=== PATIENT | male | born 1970 | race Caucasian/White ===

== ENCOUNTER 2017-07-22 19:31 | Inpatient (IN) | payer BC ==
[~2017-07-22] VITALS: Ht 182.9 cm; Wt 114.3 kg
[2017-07-22] MEDS ORDERED: fentaNYL PF VIAL 100 MCG/2 ML VIAL IV PRN (20:15)
[2017-07-22] MEDS ORDERED: NITROGLYCERIN SUBLINGUAL 0.4 MG BOTTLE OF 25. SL PRN (20:15)
--- NOTE | 2017-07-22 20:20 | PHYS DOC ---
Past Medical History Past Medical History: Diabetes-Type II, Hypertension Past Surgical History: No Surgical History Alcohol Use: None Drug Use: None Adult General Chief Complaint Chief Complaint: CHEST PAIN HPI HPI Patient is a 47 year old male who presents with complaint of chest pain. The patient states he started getting chest pains yesterday and states that he has been having them intermittently throughout the day today. Patient states that he has been having shortness of breath which also started yesterday but states that this has been constant. The patient has history of hypertension, type 2 diabetes mellitus, and family history of coronary artery disease. The patient states that he has not had associated nausea or diaphoresis with his symptoms. Patient denies fevers. The patient states that he has been under stress over the past few days and states that he started getting pains after he was told by his yesterday that she would be leaving him. Patient rates his pain currently as 5 out of 10. Patient states that the pain feels like pressure. Patient denies radiation of pain. Patient has not taken any medications for symptoms. Review of Systems Review of Systems Constitutional: Denies fever or chills [] Eyes: Denies change in visual acuity, redness, or eye pain [] HENT: Denies nasal congestion or sore throat [] Respiratory: Shortness of breath, denies cough[] Cardiovascular: Chest pain, denies edema[] GI: Denies abdominal pain, nausea, vomiting, bloody stools or diarrhea [] : Denies dysuria or hematuria [] Musculoskeletal: Denies back pain or joint pain [] Integument: Denies rash or skin lesions [] Neurologic: Denies headache, focal weakness or sensory changes [] Current Medications Current Medications Current Medications Medications (Trade) Dose Ordered Sig/[facility] Start Time Stop Time Status Last Admin Dose Admin Aspirin (Children'S Aspirin) 324 mg 1X ONCE 07/22/17 20:30 07/22/17 20:31 DC 07/22/17 20:39 324 MG Fentanyl Citrate (Fentanyl 2ml Vial) 50 mcg PRN Q15MIN PRN 07/22/17 20:15 07/23/17 20:14 Nitroglycerin (Nitrostat) 0.4 mg PRN Q5MIN PRN 07/22/17 20:15 07/23/17 20:14 Ondansetron HCl (Zofran) 4 mg 1X ONCE 07/22/17 20:30 07/22/17 20:31 DC Sodium Chloride 1,000 ml @ 1,000 mls/hr Q1H 07/22/17 20:30 07/22/17 21:29 07/22/17 20:39 1,000 MLS/HR Allergies Allergies Allergies Coded Allergies Type Severity Reaction Last Updated Verified metformin Allergy Severe 07/22/17 Yes Physical Exam Physical Exam Constitutional: Alert, afebrile, appears in mild to moderate discomfort. [] HENT: Normocephalic, atraumatic, bilateral external ears normal, oropharynx moist, no oral exudates, nose normal. [] Eyes: PERRLA, EOMI, conjunctiva normal, no discharge. [] Neck: Normal range of motion, no tenderness, supple, no stridor. [] Cardiovascular: Tachycardia, regular rhythm, no murmur [] Lungs & Thorax: Bilateral breath sounds clear to auscultation [] Abdomen: Bowel sounds normal, soft, no tenderness, no masses, no pulsatile masses. [] Skin: Warm, dry, no erythema, no rash. [] Back: No tenderness, no CVA tenderness. [] Extremities: No tenderness, no cyanosis, no clubbing, ROM intact, no edema. [] Neurologic: Alert and oriented X 3, normal motor function, normal sensory function, no focal deficits noted. [] Current Patient Data Vital Signs Vital Signs Date Time Temp Pulse Resp B/P (MAP) Pulse Ox O2 Delivery O2 Flow Rate FiO2 07/22/17 19:44 98.8 101 20 140/100 (113) 97 Room Air 98.8 Lab Values Laboratory Tests Test 07/22/17 19:40 White Blood Count 9.8 x10^3/uL (4.0-11.0) Red Blood Count 5.89 x10^6/uL (4.30-5.70) H Hemoglobin 17.7 g/dL (13.0-17.5) H Hematocrit 50.5 % (39.0-53.0) Mean Corpuscular Volume 86 fL (79-100) Mean Corpuscular Hemoglobin 30 pg (25-35) Mean Corpuscular Hemoglobin Concent 35 g/dL (31-37) Red Cell Distribution Width 12.8 % (11.5-14.5) Platelet Count 328 x10^3/uL (140-400) Neutrophils (%) (Auto) 63 % (31-73) Lymphocytes (%) (Auto) 28 % (24-48) Monocytes (%) (Auto) 9 % (0-9) Eosinophils (%) (Auto) 0 % (0-3) Basophils (%) (Auto) 1 % (0-3) Neutrophils # (Auto) 6.2 x10^3uL (1.8-7.7) Lymphocytes # (Auto) 2.7 x10^3/uL (1.0-4.8) Monocytes # (Auto) 0.8 x10^3/uL (0.0-1.1) Eosinophils # (Auto) 0.0 x10^3/uL (0.0-0.7) Basophils # (Auto) 0.0 x10^3/uL (0.0-0.2) D-Dimer (Judie) < 0.27 ug/mlFEU Sodium Level 139 mmol/L (136-145) Potassium Level 3.9 mmol/L (3.5-5.1) Chloride Level 98 mmol/L (98-107) Carbon Dioxide Level 28 mmol/L (21-32) Anion Gap 13 (6-14) Blood Urea Nitrogen 16 mg/dL (8-26) Creatinine 1.2 mg/dL (0.7-1.3) Estimated GFR (Cockcroft-Gault) 65.5 BUN/Creatinine Ratio 13 (6-20) Glucose Level 119 mg/dL (70-99) H Calcium Level 10.0 mg/dL (8.5-10.1) Magnesium Level 1.9 mg/dL (1.8-2.4) Total Bilirubin 1.8 mg/dL (0.2-1.0) H Aspartate Amino Transferase (AST) 32 U/L (15-37) Alanine Aminotransferase (ALT) 50 U/L (16-63) Alkaline Phosphatase 84 U/L (46-116) Troponin I Quantitative < 0.017 ng/mL (0.000-0.055) Total Protein 9.0 g/dL (6.4-8.2) H Albumin 5.2 g/dL (3.4-5.0) H Albumin/Globulin Ratio 1.4 (1.0-1.7) Lipase 378 U/L (73-393) Laboratory Tests 07/22/17 19:40 Laboratory Tests 07/22/17 19:40 EKG EKG Interpreted by me: Heart rate 103, sinus tachycardia, normal intervals, normal axis, subtle T-wave inversions in leads 3 and aVF, no acute ST elevations or depressions[] Radiology/Procedures Radiology/Procedures One view AP chest x-ray interpreted by me: No infiltrate, no effusions, normal cardiac silhouette[] Course & Med Decision Making Course & Med Decision Making Pertinent Labs and Imaging studies reviewed. (See chart for details) HEART score is 5, placing patient at moderate risk for adverse cardiac event. Initial troponin was negative. The patient will require hospitalization for rule out of myocardial infarction. I spoke with Dr. Sam who accepted care patient in hospital. A consult was placed to Dr. Adkins to follow patient in hospital. Dragon Disclaimer Dragon Disclaimer This electronic medical record was generated, in whole or in part, using a voice recognition dictation system. Departure Departure Impression: Primary Impression: Chest pain Additional Impressions: Hypertension Type 2 diabetes mellitus Family history of coronary artery disease Disposition: ADMITTED INPATIENT Admitting Physician: Leslie Sam Condition: GUARDED Referrals: JOHN LOPEZ (PCP) Problem Qualifiers Primary Impression: Chest pain Chest pain type: unspecified Qualified Codes: R07.9 - Chest pain, unspecified Additional Impressions: Hypertension Hypertension type: essential hypertension Qualified Codes: I10 - Essential ( primary) hypertension Type 2 diabetes mellitus Diabetes mellitus complication status: with unspecified complications Diabetes mellitus correction insulin use: without correction use Qualified Codes : E11.8 - Type 2 diabetes mellitus with unspecified complications DARYA DALLAS MD Jul 22, 2017 20:19
[2017-07-22 20:21] LABS: BASO % 1 % (0-3); EOS % 0 % (0-3); HEMATOCRIT 50.5 % (39.0-53.0); HEMOGLOBIN 17.7 g/dL (13.0-17.5); LYMPH # 2.7 x10^3/uL (1.0-4.8); LYMPH % 28 % (24-48); MEAN CORPUSCULAR HEMOGLOBIN 30 pg (25-35); MEAN CORPUSCULAR HGB CONC 35 g/dL (31-37); MEAN CORPUSCULAR VOLUME 86 fL (79-100); MONO % 9 % (0-9); NEUT % 63 % (31-73); PLATELET COUNT 328 x10^3/uL (140-400); RED BLOOD COUNT 5.89 x10^6/uL (4.30-5.70); RED CELL DISTRIBUTION WIDTH 12.8 % (11.5-14.5); WHITE BLOOD COUNT 9.8 x10^3/uL (4.0-11.0)
[2017-07-22] MEDS ORDERED: ONDANSETRON PF 4 MG/2 ML VIAL. IV ONE (20:30)
[2017-07-22] MEDS ORDERED: ASPIRIN CHEWABLE 81 MG TABLET. PO ONE (20:30)
[2017-07-22] MEDS ORDERED: IV NORMAL SALINE 1000ML BAG 1,000 ML IV SCH (20:30)
[2017-07-22 20:36] LABS: MAGNESIUM 1.9 mg/dL (1.8-2.4)
[2017-07-22 20:43] LABS: ALBUMIN 5.2 g/dL (3.4-5.0); ALBUMIN/GLOBULIN RATIO 1.4 (1.0-1.7); CREATININE 1.2 mg/dL (0.7-1.3); GFR 65.5; POTASSIUM 3.9 mmol/L (3.5-5.1); TOTAL BILIRUBIN 1.8 mg/dL (0.2-1.0)
[2017-07-22 20:50] LABS: CKMB MASS 6.6 ng/mL (0.0-3.6)
[2017-07-22] MEDS ORDERED: ACETAMINOPHEN 325 MG TABLET. PO PRN (21:00)
[2017-07-22] MEDS ORDERED: ONDANSETRON PF 4 MG/2 ML VIAL. IV PRN (21:00)
[2017-07-22 21:48] LABS: BILIRUBIN,URINE NEGATIVE (NEG); GLUCOSE,URINE NEGATIVE (NEG); NITRITE,URINE NEGATIVE (NEG); PH,URINE 6.5; PROTEIN,URINE 100 mg/dL (NEG-TRACE); UROBILINOGEN,URINE 0.2 mg/dL (0.2 mg/dL)
[2017-07-22 21:55] LABS: BACTERIA,URINE 0 /HPF (0-FEW); RBC,URINE 0 /HPF (0-2)
[2017-07-22 22:02] LABS: BARBITURATES NEG (NEG); BENZODIAZEPINES NEG (NEG); CANNABINOIDS NEG (NEG); COCAINE NEG (NEG); METHADONE NEG (NEG); OPIATES NEG (NEG); PHENCYCLIDINE NEG (NEG)
--- NOTE | 2017-07-22 22:05 | PDOC1 ---
History and Physical Date of Admission Date of Admission DATE: 07/22/17 TIME: 22:03 Source Source: Chart review, Patient History of Present Illness History of Present Illness Mr. Carlos, is a 47 year old male admit from ER with complaint of chest pain. The patient states he started getting chest pains yesterday and reports one distinct episode of pain yesterday and then pain today. Pain is across his chest but does not radiate, and feels tight. WHen pain occurrs he reports he can barely breathe. w/ pressure New dyspnea yesterday emotional day yesterday, as his may be leaving him, and he started smoking again, then had chest pain. no sore throat, no cough, no travel, no sick contacts. Patient was rate 5 out of 10. Past Medical History Cardiovascular: HTN GI: No pertinent hx Heme/Onc: No pertinent hx Hepatobiliary: No pertinent hx Psych: No pertinent hx Rheumatologic: No pertinent hx Endocrine: Diabetes Family History Family History: Coronary Artery Disease (father triple bypass) Social History Smoke: <1 pack per day ALCOHOL: rare Drugs: None Current Problem List Problem List Problems Medical Problems: (1) Chest pain Status: Acute (2) Hypertension Status: Acute (3) Type 2 diabetes mellitus Status: Acute Problems: Current Medications Current Medications Current Medications Aspirin (Children'S Aspirin) 324 mg 1X ONCE PO Last administered on 20:39; Start 07/22/17 at 20:30; Stop 07/22/17 at 20:31; Status DC Nitroglycerin (Nitrostat) 0.4 mg PRN Q5MIN PRN SL CP RATING > 1/10; Start at 20:15; Stop 07/23/17 at 20:14 Fentanyl Citrate (Fentanyl 2ml Vial) 50 mcg PRN Q15MIN PRN IV PAIN GREATER THAN 3/10; Start 07/22/17 at 20:15; Stop 07/23/17 at 20:14 Sodium Chloride 1,000 ml @ 1,000 mls/hr Q1H IV Last administered on 20:39; Start 07/22/17 at 20:30; Stop 07/22/17 at 21:29; Status DC Ondansetron HCl (Zofran) 4 mg 1X ONCE IV ; Start 07/22/17 at 20:30; Stop at 20:31; Status DC Ondansetron HCl (Zofran) 4 mg PRN Q8HRS PRN IV NAUSEA/VOMITING; Start at 21:00; Stop 07/23/17 at 20:59 Sodium Chloride 1,000 ml @ 100 mls/hr Q10H IV ; Start 07/22/17 at 21:00; Stop 07/23/17 at 20:59 Acetaminophen (Tylenol) 650 mg PRN Q4HRS PRN PO FEVER; Start 07/22/17 at 21:00 ; Stop 07/23/17 at 20:59 Allergies Allergies: Coded Allergies: metformin (Verified Allergy, Severe, 07/22/17) ROS General: YES: Malaise, No: Chills, Night Sweats, Fatigue, Appetite, Other PSYCHOLOGICAL ROS: No: Anxiety, Behavioral Disorder, Concentration difficultie , Decreased libido, Depression, Disorientation, Hallucinations, Hostility, Irritablity, Memory difficulties, Mood Swings, Obsessive thoughts, Physical abuse, Sexual abuse, Sleep disturbances, Suicidal ideation, Other Eyes: No Blurry vision, No Decreased vision, No Double vision, No Dry eyes, No Excessive tearing, No Eye Pain, No Itchy Eyes, No Loss of vision, No Photophobia , No Scotomata, No Uses contacts, No Uses glasses, No Other HEENT: YES: Heacaches, No: Visual Changes, Hearing change, Nasal congestion, Nasal discharge, Oral lesions, Sinus pain, Sore Throat, Epistaxis, Sneezing, Snoring, Tinnitus, Vertigo, Vocal changes, Other Respiratory: YES: Shortness of breath, No: Cough, Hemoptysis, Orthopnea, Pleuritic Pain, SOB with excertion, Sputum Changes, Stridor, Tachypnea, Wheezing, Other Cardiovascular: yes Chest Pain, No Palpitations, No Orthopnea, No Paroxysmal Noc. Dyspnea, No Edema, No Lt Headedness, No Other Gastrointestinal: No Nausea, No Vomiting, No Abdominal Pain, No Diarrhea, No Constipation, No Melena, No Hematochezia, No Other Genitourinary: No Dysuria, No Frequency, No Incontinence, No Hematuria, No Retention, No Discharge, No Urgency, No Pain, No Flank Pain, No Other, No , No , No , No , No , No , No Musculoskeletal: No Gait Disturbance, No Joint Pain, No Joint Stiffness, No Joint Swelling, No Muscle Pain, No Muscular Weakness, No Pain In:, No Swelling In:, No Other Neurological: No Behavorial Changes, No Bowel/Bladder ControlChng, No Confusion , No Dizziness, No Gait Disturbance, No Headaches, No Impaired Coord/balance, No Memory Loss, No Numbness/Tingling, No Seizures, No Speech Problems, No Tremors, No Visual Changes, No Weakness, No Other Skin: No Dry Skin, No Eczema, No Hair Changes, No Lumps, No Mole Changes, No Mottling, No Nail Changes, No Pruritus, No Rash, No Skin Lesion Changes, No Other, No Acne Physical Exam General: Alert, Oriented X3, Cooperative, mild distress HEENT: EOMI, Mucous membr. moist/pink Lungs: Normal air movement Heart: S1S2, no gallops, no murmurs Abdomen: Normal bowel sounds Extremities: No edema, Normal pulses Skin: No rashes, No significant lesion Neuro: Normal speech, Normal tone, Sensation intact, Cranial nerves 3-12 NL Psych/Mental Status: Mood NL Vitals Vitals Vital Signs Date Time Temp Pulse Resp B/P (MAP) Pulse Ox O2 Delivery O2 Flow Rate FiO2 07/22/17 21:01 97 141/86 (104) 97 Room Air 07/22/17 20:31 23 07/22/17 19:44 98.8 98.8 Labs Labs Laboratory Tests Test 07/22/17 19:40 07/22/17 21:43 White Blood Count 9.8 x10^3/uL (4.0-11.0) Red Blood Count 5.89 x10^6/uL (4.30-5.70) Hemoglobin 17.7 g/dL (13.0-17.5) Hematocrit 50.5 % (39.0-53.0) Mean Corpuscular Volume 86 fL (79-100) Mean Corpuscular Hemoglobin 30 pg (25-35) Mean Corpuscular Hemoglobin Concent 35 g/dL (31-37) Red Cell Distribution Width 12.8 % (11.5-14.5) Platelet Count 328 x10^3/uL (140-400) Neutrophils (%) (Auto) 63 % (31-73) Lymphocytes (%) (Auto) 28 % (24-48) Monocytes (%) (Auto) 9 % (0-9) Eosinophils (%) (Auto) 0 % (0-3) Basophils (%) (Auto) 1 % (0-3) Neutrophils # (Auto) 6.2 x10^3uL (1.8-7.7) Lymphocytes # (Auto) 2.7 x10^3/uL (1.0-4.8) Monocytes # (Auto) 0.8 x10^3/uL (0.0-1.1) Eosinophils # (Auto) 0.0 x10^3/uL (0.0-0.7) Basophils # (Auto) 0.0 x10^3/uL (0.0-0.2) D-Dimer (Judie) < 0.27 ug/mlFEU Sodium Level 139 mmol/L (136-145) Potassium Level 3.9 mmol/L (3.5-5.1) Chloride Level 98 mmol/L (98-107) Carbon Dioxide Level 28 mmol/L (21-32) Anion Gap 13 (6-14) Blood Urea Nitrogen 16 mg/dL (8-26) Creatinine 1.2 mg/dL (0.7-1.3) Estimated GFR (Cockcroft-Gault) 65.5 BUN/Creatinine Ratio 13 (6-20) Glucose Level 119 mg/dL (70-99) Calcium Level 10.0 mg/dL (8.5-10.1) Magnesium Level 1.9 mg/dL (1.8-2.4) Total Bilirubin 1.8 mg/dL (0.2-1.0) Aspartate Amino Transf (AST/SGOT) 32 U/L (15-37) Alanine Aminotransferase (ALT/SGPT) 50 U/L (16-63) Alkaline Phosphatase 84 U/L (46-116) Creatine Kinase 649 U/L (39-308) Creatine Kinase MB (Mass) 6.6 ng/mL (0.0-3.6) Creatine Kinase MB Relative Index 1.0 % (0-4) Troponin I Quantitative < 0.017 ng/mL (0.000-0.055) QD-Mzn-R-Type Natriuretic Peptide 24 pg/mL (0-124) Total Protein 9.0 g/dL (6.4-8.2) Albumin 5.2 g/dL (3.4-5.0) Albumin/Globulin Ratio 1.4 (1.0-1.7) Lipase 378 U/L (73-393) Urine Collection Type Unknown Urine Color Yellow Urine Clarity Clear Urine pH 6.5 Urine Specific [place] 1.010 Urine Protein 100 mg/dL (NEG-TRACE) Urine Glucose (UA) Negative mg/dL (NEG) Urine Ketones (Stick) Negative mg/dL (NEG) Urine Blood Negative (NEG) Urine Nitrite Negative (NEG) Urine Bilirubin Negative (NEG) Urine Urobilinogen Dipstick 0.2 mg/dL (0.2 mg/dL) Urine Leukocyte Esterase Negative (NEG) Urine RBC 0 /HPF (0-2) Urine WBC 1-4 /HPF (0-4) Urine Transitional Epithelial Cells Few /LPF Urine Bacteria 0 /HPF (0-FEW) Urine Hyaline Casts Many /HPF Urine Mucus Slight /LPF Laboratory Tests Test 07/22/17 19:40 07/22/17 21:43 White Blood Count 9.8 x10^3/uL (4.0-11.0) Red Blood Count 5.89 x10^6/uL (4.30-5.70) Hemoglobin 17.7 g/dL (13.0-17.5) Hematocrit 50.5 % (39.0-53.0) Mean Corpuscular Volume 86 fL (79-100) Mean Corpuscular Hemoglobin 30 pg (25-35) Mean Corpuscular Hemoglobin Concent 35 g/dL (31-37) Red Cell Distribution Width 12.8 % (11.5-14.5) Platelet Count 328 x10^3/uL (140-400) Neutrophils (%) (Auto) 63 % (31-73) Lymphocytes (%) (Auto) 28 % (24-48) Monocytes (%) (Auto) 9 % (0-9) Eosinophils (%) (Auto) 0 % (0-3) Basophils (%) (Auto) 1 % (0-3) Neutrophils # (Auto) 6.2 x10^3uL (1.8-7.7) Lymphocytes # (Auto) 2.7 x10^3/uL (1.0-4.8) Monocytes # (Auto) 0.8 x10^3/uL (0.0-1.1) Eosinophils # (Auto) 0.0 x10^3/uL (0.0-0.7) Basophils # (Auto) 0.0 x10^3/uL (0.0-0.2) D-Dimer (Judie) < 0.27 ug/mlFEU Sodium Level 139 mmol/L (136-145) Potassium Level 3.9 mmol/L (3.5-5.1) Chloride Level 98 mmol/L (98-107) Carbon Dioxide Level 28 mmol/L (21-32) Anion Gap 13 (6-14) Blood Urea Nitrogen 16 mg/dL (8-26) Creatinine 1.2 mg/dL (0.7-1.3) Estimated GFR (Cockcroft-Gault) 65.5 BUN/Creatinine Ratio 13 (6-20) Glucose Level 119 mg/dL (70-99) Calcium Level 10.0 mg/dL (8.5-10.1) Magnesium Level 1.9 mg/dL (1.8-2.4) Total Bilirubin 1.8 mg/dL (0.2-1.0) Aspartate Amino Transf (AST/SGOT) 32 U/L (15-37) Alanine Aminotransferase (ALT/SGPT) 50 U/L (16-63) Alkaline Phosphatase 84 U/L (46-116) Creatine Kinase 649 U/L (39-308) Creatine Kinase MB (Mass) 6.6 ng/mL (0.0-3.6) Creatine Kinase MB Relative Index 1.0 % (0-4) Troponin I Quantitative < 0.017 ng/mL (0.000-0.055) VF-Dze-G-Type Natriuretic Peptide 24 pg/mL (0-124) Total Protein 9.0 g/dL (6.4-8.2) Albumin 5.2 g/dL (3.4-5.0) Albumin/Globulin Ratio 1.4 (1.0-1.7) Lipase 378 U/L (73-393) Urine Collection Type Unknown Urine Color Yellow Urine Clarity Clear Urine pH 6.5 Urine Specific [place] 1.010 Urine Protein 100 mg/dL (NEG-TRACE) Urine Glucose (UA) Negative mg/dL (NEG) Urine Ketones (Stick) Negative mg/dL (NEG) Urine Blood Negative (NEG) Urine Nitrite Negative (NEG) Urine Bilirubin Negative (NEG) Urine Urobilinogen Dipstick 0.2 mg/dL (0.2 mg/dL) Urine Leukocyte Esterase Negative (NEG) Urine RBC 0 /HPF (0-2) Urine WBC 1-4 /HPF (0-4) Urine Transitional Epithelial Cells Few /LPF Urine Bacteria 0 /HPF (0-FEW) Urine Hyaline Casts Many /HPF Urine Mucus Slight /LPF VTE Prophylaxis Ordered VTE Prophylaxis Devices: No VTE Pharmacological Prophylaxi: No Assessment/Plan Assessment/Plan chest pain, pressure and dyspnea, chest tightness with pain across his chest 2 episodes in 2 days angina, r/o ACS, CV consult to stratify DM2, on glipizide, reports allergy to metformin htn, he reports on 5 agents, he cannot recall, start coreg check echo, he reports emotional strain yesterday before chest pain tobaccoism, he has restarted OMAYRA MACK MD Jul 22, 2017 22:05
[2017-07-22] MEDS: CARVEDILOL 12.5 MG TABLET. PO SCH (22:30)
[2017-07-22 23:00] VITALS: BP 124/92
[2017-07-22] MEDS: IV NORMAL SALINE 1000ML BAG 1,000 ML IV SCH (23:39)
[2017-07-23 03:00] VITALS: BP 113/64
[2017-07-23 04:49] LABS: BASO # 0.1 x10^3/uL (0.0-0.2); BASO % 1 % (0-3); EOS % 1 % (0-3); HEMATOCRIT 45.6 % (39.0-53.0); HEMOGLOBIN 15.7 g/dL (13.0-17.5); LYMPH # 3.2 x10^3/uL (1.0-4.8); LYMPH % 38 % (24-48); MEAN CORPUSCULAR HEMOGLOBIN 30 pg (25-35); MEAN CORPUSCULAR HGB CONC 34 g/dL (31-37); MEAN CORPUSCULAR VOLUME 87 fL (79-100); MONO % 8 % (0-9); NEUT % 52 % (31-73); PLATELET COUNT 273 x10^3/uL (140-400); RED BLOOD COUNT 5.25 x10^6/uL (4.30-5.70); RED CELL DISTRIBUTION WIDTH 12.9 % (11.5-14.5); WHITE BLOOD COUNT 8.4 x10^3/uL (4.0-11.0)
[2017-07-23 05:23] LABS: CALCIUM 8.9 mg/dL (8.5-10.1); CREATININE 1.1 mg/dL (0.7-1.3); GFR 72.4; POTASSIUM 3.7 mmol/L (3.5-5.1)
[2017-07-23] MEDS: IV NORMAL SALINE 1000ML BAG 1,000 ML IV SCH (06:30)
[2017-07-23 07:00] VITALS: BP 115/81
--- NOTE | 2017-07-23 07:48 | PDOC2 ---
VICKI BUSH ESTHETICIAN SPA 07/23/17 0748: CARDIAC CONSULT DATE OF CONSULT Date of Consult DATE: 07/23/17 TIME: 07:38 REASON FOR CONSULT Reason for Consult: CP REFERRING PHYSICIAN Referring Physician: Shaggy SOURCE Source: Chart review, Patient HISTORY OF PRESENT ILLNESS HISTORY OF PRESENT ILLNESS This is a 47 yo male admitted for complains of CP. Reports that he was noticed by his grabbing his chest initially about after work and was SOA. He describes this as pressure to midchest without radiating discomfort. This was brief but recurred again Tuesday at longer period between about 10-20 minutes. He is thinking that this maybe stress since there is some life changes happening to him at this time. Denies any nausea or palpitations. Prior to this there was no exertional CP or SOA. Denies any recent long distance travel, injury, or falls. He does however sometimes experience some dizziness to a point where his vision gets blurry otherwise no history of any passing out. He does have GERD which he takes zantac for and denies any heartburn. Positive for HTN and DM2 but he has skipped his medications in the last 2 days since his appetite has been decreased and felt weak. He also takes ASA. No hx of CAD, VTE, or any arrhythmias. PAST MEDICAL HISTORY Cardiovascular: HTN, Hyperlipidemia CENTRAL NERVOUS SYSTEM: Other (No pertinent history) GI: GERD Psych: No pertinent hx Musculoskeletal: Other (No pertinent history) Rheumatologic: No pertinent hx Infectious disease: No pertinent hx ENT: No pertinent hx Renal/: No pertinent hx Endocrine: Diabetes (2) Dermatology: No pertinent hx PAST SURGICAL HISTORY Past Surgical History: No pertinent history FAMILY HISTORY Family History: Coronary Artery Disease (father and mother) SOCIAL HISTORY Smoke: <1 pack per day ALCOHOL: none Drugs: None Lives: with Family CURRENT MEDICATIONS CURRENT MEDICATIONS Current Medications Medications (Trade) Dose Ordered Sig/Arianne Route PRN Reason Start Time Stop Time Status Last Admin Dose Admin Aspirin (Children'S Aspirin) 324 mg 1X ONCE PO 07/22/17 20:30 07/22/17 20:31 DC 07/22/17 20:39 Sodium Chloride 1,000 ml @ 1,000 mls/hr Q1H IV 07/22/17 20:30 07/22/17 21:29 DC 07/22/17 20:39 Sodium Chloride 1,000 ml @ 100 mls/hr Q10H IV 07/22/17 21:00 07/23/17 20:59 07/23/17 06:30 ALLERGIES ALLERGIES: Coded Allergies: metformin (Verified Allergy, Severe, 07/22/17) ROS Review of System 14 point ROS evaluated with pertinent positives noted per HPI PHYSICAL EXAM General: Alert, Oriented X3, Cooperative, No acute distress HEENT: Atraumatic, Mucous membr. moist/pink Lungs: Clear to auscultation, Normal air movement Heart: Regular rate (SR), Normal S1, Normal S2, No murmurs Abdomen: Soft, No tenderness Extremities: No cyanosis, No edema Skin: No breakdown, No significant lesion Neuro: Normal speech, Sensation intact Psych/Mental Status: Mood NL MUSCULOSKELETAL: Osteoarthritic changes both hands VITALS VITALS Vital Signs Date Time Temp Pulse Resp B/P (MAP) Pulse Ox O2 Delivery O2 Flow Rate FiO2 07/23/17 03:00 97.2 81 18 113/64 (80) 98 Room Air 97.2 LABS Lab: Laboratory Tests Test 07/22/17 19:40 07/22/17 21:43 07/23/17 03:00 07/23/17 03:15 White Blood Count 9.8 x10^3/uL (4.0-11.0) 8.4 x10^3/uL (4.0-11.0) Red Blood Count 5.89 x10^6/uL (4.30-5.70) 5.25 x10^6/uL (4.30-5.70) Hemoglobin 17.7 g/dL (13.0-17.5) 15.7 g/dL (13.0-17.5) Hematocrit 50.5 % (39.0-53.0) 45.6 % (39.0-53.0) Mean Corpuscular Volume 86 fL (79-100) 87 fL (79-100) Mean Corpuscular Hemoglobin 30 pg (25-35) 30 pg (25-35) Mean Corpuscular Hemoglobin Concent 35 g/dL (31-37) 34 g/dL (31-37) Red Cell Distribution Width 12.8 % (11.5-14.5) 12.9 % (11.5-14.5) Platelet Count 328 x10^3/uL (140-400) 273 x10^3/uL (140-400) Neutrophils (%) (Auto) 63 % (31-73) 52 % (31-73) Lymphocytes (%) (Auto) 28 % (24-48) 38 % (24-48) Monocytes (%) (Auto) 9 % (0-9) 8 % (0-9) Eosinophils (%) (Auto) 0 % (0-3) 1 % (0-3) Basophils (%) (Auto) 1 % (0-3) 1 % (0-3) Neutrophils # (Auto) 6.2 x10^3uL (1.8-7.7) 4.4 x10^3uL (1.8-7.7) Lymphocytes # (Auto) 2.7 x10^3/uL (1.0-4.8) 3.2 x10^3/uL (1.0-4.8) Monocytes # (Auto) 0.8 x10^3/uL (0.0-1.1) 0.7 x10^3/uL (0.0-1.1) Eosinophils # (Auto) 0.0 x10^3/uL (0.0-0.7) 0.1 x10^3/uL (0.0-0.7) Basophils # (Auto) 0.0 x10^3/uL (0.0-0.2) 0.1 x10^3/uL (0.0-0.2) D-Dimer (Judie) < 0.27 ug/mlFEU Sodium Level 139 mmol/L (136-145) 141 mmol/L (136-145) Potassium Level 3.9 mmol/L (3.5-5.1) 3.7 mmol/L (3.5-5.1) Chloride Level 98 mmol/L (98-107) 102 mmol/L (98-107) Carbon Dioxide Level 28 mmol/L (21-32) 30 mmol/L (21-32) Anion Gap 13 (6-14) 9 (6-14) Blood Urea Nitrogen 16 mg/dL (8-26) 18 mg/dL (8-26) Creatinine 1.2 mg/dL (0.7-1.3) 1.1 mg/dL (0.7-1.3) Estimated GFR (Cockcroft-Gault) 65.5 72.4 BUN/Creatinine Ratio 13 (6-20) Glucose Level 119 mg/dL (70-99) 95 mg/dL (70-99) Calcium Level 10.0 mg/dL (8.5-10.1) 8.9 mg/dL (8.5-10.1) Magnesium Level 1.9 mg/dL (1.8-2.4) Total Bilirubin 1.8 mg/dL (0.2-1.0) Aspartate Amino Transf (AST/SGOT) 32 U/L (15-37) Alanine Aminotransferase (ALT/SGPT) 50 U/L (16-63) Alkaline Phosphatase 84 U/L (46-116) Creatine Kinase 649 U/L (39-308) Creatine Kinase MB (Mass) 6.6 ng/mL (0.0-3.6) Creatine Kinase MB Relative Index 1.0 % (0-4) Troponin I Quantitative < 0.017 ng/mL (0.000-0.055) < 0.017 ng/mL (0.000-0.055) DU-Ymq-G-Type Natriuretic Peptide 24 pg/mL (0-124) Total Protein 9.0 g/dL (6.4-8.2) Albumin 5.2 g/dL (3.4-5.0) Albumin/Globulin Ratio 1.4 (1.0-1.7) Lipase 378 U/L (73-393) Urine Collection Type Unknown Urine Color Yellow Urine Clarity Clear Urine pH 6.5 Urine Specific [place] 1.010 Urine Protein 100 mg/dL (NEG-TRACE) Urine Glucose (UA) Negative mg/dL (NEG) Urine Ketones (Stick) Negative mg/dL (NEG) Urine Blood Negative (NEG) Urine Nitrite Negative (NEG) Urine Bilirubin Negative (NEG) Urine Urobilinogen Dipstick 0.2 mg/dL (0.2 mg/dL) Urine Leukocyte Esterase Negative (NEG) Urine RBC 0 /HPF (0-2) Urine WBC 1-4 /HPF (0-4) Urine Transitional Epithelial Cells Few /LPF Urine Bacteria 0 /HPF (0-FEW) Urine Hyaline Casts Many /HPF Urine Mucus Slight /LPF Urine Opiates Screen Neg (NEG) Urine Methadone Screen Neg (NEG) Urine Barbiturates Neg (NEG) Urine Phencyclidine Screen Neg (NEG) Urine Amphetamine/Methamphetamine Neg (NEG) Urine Benzodiazepines Screen Neg (NEG) Urine Cocaine Screen Neg (NEG) Urine Cannabinoids Screen Neg (NEG) Urine Ethyl Alcohol Neg (NEG) ASSESSMENT/PLAN ASSESSMENT/PLAN 1. Chest pain: likely anxiety. 2. HTN: controlled 3. HLP 4. DM2 5. Tobaccoism 6. GERD 7. Anxiety 8. Family hx of CAD Recommendations 1. Given the risk factors above will proceed with MPI to rule out ischemic etiology. 2. Continue home BP meds. including ASA. 3. Lipid panel, TSH 4. smoking cessation Problems: INOCENCIO DE PAZ MD 07/23/17 1605: CARDIAC CONSULT ALLERGIES ALLERGIES: Coded Allergies: metformin (Verified Allergy, Severe, 07/22/17) ASSESSMENT/PLAN ASSESSMENT/PLAN Patient seen and examined. Agree with SUSTAINABILITY PURCHASING AGENT's assessment and plan. Chest pain with atypical features. Myocardial infarction ruled out. Treadmill nuclear stress test did not show any significant ischemia. Importance of smoking cessation emphasized. Okay for discharge from cardiac standpoint. Thank you for your consultation. Problems: VICKI BUSH APRN Jul 23, 2017 07:48 INOCENCIO DE PAZ MD Jul 23, 2017 16:05
[2017-07-23] MEDS ORDERED: ASPIRIN ENTERIC COATED 81 MG TABLET.DR. PO SCH (08:00)
[2017-07-23] MEDS: CARVEDILOL 12.5 MG TABLET. PO SCH (08:00)
--- NOTE | 2017-07-23 10:46 | RAD ---
AP portable chest radiograph 07/22/2017 Clinical History: Chest pain since earlier today. An AP portable erect digital radiograph of the chest was obtained. No previous studies are available for comparison. The cardiac silhouette is normal in size. The thoracic aorta is mildly tortuous. No acute pulmonary infiltrate is seen. No pleural effusion or pneumothorax is noted. Degenerative changes are seen involving the thoracic spine. Impression: No acute abnormality is seen.
[2017-07-23 10:54] VITALS: BP 123/79
--- NOTE | 2017-07-23 12:20 | EKG ---
[facility] [address] [place] [address] Test Date: 2017-07-22 Test Time: 19:42:37 Pat Name: ASHER CAMACHO Department: Room: Gender: M [employer]: : 1970 Requested By: DARYA DALLAS Order Number: [id number] Reading MD: Measurements Intervals [place] Rate: 103 P: 39 [place]: 146 QRS: 8 QRSD: 80 T: 8 QT: 322 QTc: 424 Interpretive Statements SINUS TACHYCARDIA QRS(T) CONTOUR ABNORMALITY CONSIDER ANTEROSEPTAL MYOCARDIAL DAMAGE RI6.01 Unconfirmed report No previous ECG available for comparison
[2017-07-23] MEDS ORDERED: METO25TA4 PO (13:27)
[2017-07-23] MEDS ORDERED: AMLO10TA4 PO (13:27)
--- NOTE | 2017-07-23 14:35 | RAD ---
APPROVED REPORT Test Type: Exercise Stress Nurse/Tech: Nella Marroquin R.N. Test Indications: stress, dyspnea, chest tightness Cardiac History: htn, dm. Medications: see ehr Medical History: see ehr Resting ECG: sr Resting Heart Rate: 79 bpm Resting Blood Pressure: 135/81mmHg Pretest Chest Pain: No chest pain Nurse/Tech Notes lungs cta, heart tones regular Consent: The procedure was explained to the patient in lay terms. Informed consent was witnessed. Patel eout was entered into [email or web address]. History and Stress Test performed by Nella Marroquin R.N. Stress Symptoms No chest pain or symptoms.Dyspnea POST EXERCISE Reason for Termination: Reached target heart rate Target HR: Yes Max HR: 153 bpm 87% of Maximum Predicted HR: 175 bpm Exercise duration: 9:10 min:sec, 3 Stage Exercise capacity: 10.0METs Max Blood Pressure: 134/78mmHg Blood Pressure response to exercise: Normal blood pressure response during stress. Heart Rate response to exercise: normal Chest Pain: No. Arrhythmia: No. ST Change: Yes. ST depression noted inII III avf, V3-6 at end of exercise and during recovery-resolve d with recovery INTERPRETATION Stress EKG Conclusion: Baseline EKG showed sinus rhythm. No ischemic changes at peak stress. No arr hythmias. Imaging Protocol IMAGE PROTOCOL: Rest Tc-99m/stress Tc-99m 1 day Rest: Stress: Viability: Radiopharm.Tc99m [id number] Sestamibi Dose10.4mCi 34mCi Duration 15min. 10min. Img Date 07/23/2017 07/23/2017 Inj-Img [id number]. 60min. Rest Admin Site:IV - Right AntecubitalAdministrator:RT Lluvia (R)(N) Stress Admin Site: IV - Right AntecubitalAdministrator: RT Lluvia (R)(N) STRESS DATA End Diast. Vol.118.0mlAv. Heart Rate85.0bpm End Syst. Vol.36.0mlCO Index BSA0.0L/min Myocardial Ntwy497.0gEject. Qobkjtcc31.0% Stress Rates Pk. Fill Rate3.25EDV/secLVtime Pk. Fill 151.03msec Pk. Empty Rate4.23ESV/secLVtime Pk. Vhtdr614.85msec 1/3 Pk. Fill1.92EDV/sec Stress Scores Regional WT1.00Summed WT4.00 Regional WM0.00Summed WM0.00 Study quality was good. Left Ventricular size was Normal at Rest and Stress. Lung uptake was Normal. Left Ventricular ejection fraction is 69%. The rest and stress images show normal perfusion, normal contraction and thickening. LV Perf. Quant 17 Seg. SSS0.00 17 Seg. SRS2.00 17 Seg. SDS0.00 Stress Defect Extent (% LAD)0.00Rest Defect Extent (% LAD)2.50Rev. Defect Extent (% LAD)0.00 Stress Defect Extent (% LCX) 0.00Rest Defect Extent (% LCX)0.00Rev. Defect Extent (% LCX)0.00 Stress Defect Extent (% RCA)0.00Rest Defect Extent (% RCA)0.00Rev. Defect Extent (% RCA)0.00 Stress Defect Extent (% LAM)0.00Rest Defect Extent (% LAM)0.90Rev. Defect Extent (% LAM)0.00 Conclusion 1. Treadmill exercise cardioisotope stress test did not show any evidence of ischemia or infarct. 2. Normal left ventricular systolic function with ejection fraction calculated at 69%. 3. Patient had good activity tolerance. Low risk for cardiac events.
[2017-07-23 15:00] VITALS: BP 122/89
[2017-07-23 15:08] LABS: CHOLESTEROL/HDL RATIO 4.9
[2017-07-23] MEDS ORDERED: GLIP5TAB10 PO (18:03)
[2017-07-23] MEDS ORDERED: METO100T2 PO (18:03)
[2017-07-23] MEDS ORDERED: LOSA100T6 PO (18:03)
[2017-07-23] MEDS ORDERED: SPIR50TA2 PO (18:03)
[2017-07-23] MEDS ORDERED: CHLO25TA PO (18:03)
== END 2017-07-23 20:18 | disposition home or self-care (01) | DRG 313 ==
LOC: ER 19:31 → 5 NORTH 20:47
PROVIDERS: ADMIT Internal Medicine; ATTEND Internal Medicine
DX: R07.89 Other chest pain (principal); E11.9 Type 2 diabetes mellitus without complications; E78.5 Hyperlipidemia, unspecified; F17.210 Nicotine dependence, cigarettes, uncomplicated; F41.9 Anxiety disorder, unspecified; I10 Essential (primary) hypertension; K21.9 Gastro-esophageal reflux disease without esophagitis; Z79.82 Long term (current) use of aspirin; Z82.49 Family history of ischemic heart disease and other diseases of the circulatory system; Z88.8 Allergy status to other drugs, medicaments and biological substances
CPT/HCPCS: 36415; 71010; 78452; 80048; 80053; 80061; 80307; 81001; 82553; 83690; 83735; 83880; 84443; 84484; 85025; 85379; 93005; 93017; 96360; 96374; 96376; A9500; J7030; 99285-25; G0479